=== PATIENT | male | born 1980 | race Two or more races ===

== ENCOUNTER 2019-03-27 18:04 | Inpatient (IN) | payer MEDICAID ==
[~2019-03-27] VITALS: Ht 154.9 cm; Wt 97.5 kg
--- NOTE | 2019-03-27 18:32 | NUR ---
C/O ABDOMINAL PAIN STARTED YESTERDAY, -VOMITING/DIARRHEA. PATIENT A/OX4, BREATHING EVEN AND UNLABORED, NO SOB NOTED, NEEDS ATTENDED, ATTACHED TO THE MONITOR.
[2019-03-27] MEDS ORDERED: MORPHINE SULFATE INJ 2 MG/ML DISP.SYRIN ONE (18:58)
[2019-03-27] MEDS ORDERED: ONDANSETRON HCL/PF 4 MG/2 ML VIAL ONE (18:58)
[2019-03-27] MEDS ORDERED: IV NS 0.9% 1,000 ML BAG IV ONE (19:00)
[2019-03-27] MEDS ORDERED: MORPHINE SULFATE INJ 2 MG/ML DISP.SYRIN IV ONE (19:00)
[2019-03-27] MEDS ORDERED: ONDANSETRON HCL/PF 4 MG/2 ML VIAL IVP ONE (19:00)
[2019-03-27 19:20] LABS: BASOPHILS # (AUTO) 0.1 /CMM (0.0-0.2); BASOPHILS % (AUTO) 0.5 % (0.0-2.0); EOSINOPHILS % (AUTO) 1.6 % (0.0-6.0); HEMATOCRIT 48 % (39-51); HEMOGLOBIN 16.4 g/dL (13.5-17.5); LYMPHOCYTES # (AUTO) 1.2 /CMM (0.8-4.8); MEAN CORPUSCULAR HGB CONC 34 g/dl (31.0-36.0); MEAN CORPUSCULAR VOLUME 92 fL (80-96); MONOCYTES % (AUTO) 6.6 % (2.0-12.0); NEUTROPHILS # (AUTO) 12.2 /CMM (1.8-8.9); NEUTROPHILS % (AUTO) 83.3 % (43.0-81.0); PLATELET COUNT (AUTO) 137 /CMM (150-450); RED BLOOD CELL COUNT(AUTO) 5.26 MIL/uL (4.5-6.0); WHITE BLOOD COUNT (AUTO) 14.7 K/uL (4.3-11.0)
[2019-03-27] MEDS ORDERED: PIPERACILLIN /TAZOBACTAM 3.375 G VIAL IV ONE (19:49)
[2019-03-27] MEDS ORDERED: PIPERACILLIN /TAZOBACTAM 3.375 G in IV D5W 50 ML IV ONE (20:00)
[2019-03-27 20:16] LABS: CALCIUM, SERUM 9.1 mg/dL (8.5-10.1); CREATININE 1.1 mg/dL (0.6-1.3); POTASSIUM 3.9 mmol/L (3.5-5.1)
[2019-03-27 20:21] LABS: ALBUMIN 4.3 g/dL (3.4-5.0); BILIRUBIN,DIRECT 0.2 mg/dL (0.0-0.2); BILIRUBIN,TOTAL 0.8 mg/dL (0.2-1.0)
--- NOTE | 2019-03-27 20:23 | NUR ---
per pt she is not taking any medication at home
--- NOTE | 2019-03-27 20:31 | NUR ---
seen by the hospitslist at the bed side. report given to Adamaris on third floor for EDDIE
[2019-03-27] MEDS ORDERED: IV D5/0.45 NACL 1,000 ML IV PRN (20:40)
--- NOTE | 2019-03-27 20:48 | NUR ---
pt was transferred to the third floor in stable condition
[2019-03-27 21:00] VITALS: BP 126/70
[2019-03-27] MEDS ORDERED: ONDANSETRON HCL/PF 4 MG/2 ML VIAL IVP PRN (21:00)
[2019-03-27] MEDS ORDERED: MORPHINE SULFATE INJ 2 MG/ML DISP.SYRIN IV PRN (21:00)
--- NOTE | 2019-03-27 21:15 | NUR ---
RN ADMITTING NOTES RECEIVED REPORT FROM MANAGER DATA [employer]. Pt ARRIVED TO THE FLOOR IN STABLE CONDITION. ABLE TO AMBULATE WITH STEADY GAIT. NO S/S OF ACUTE DISTRESS OR SOB NOTED. Pt IS A/OX4, VERBAL, ABLE TO MAKE NEEDS KNOWN, NEPALESE SPEAKING BUT UNDERSTANDS IN[place]ES[place] WELL. IV ACCESS ON LAC #18G. SAFETY MEASURES IN PLACE. WILL MOST LIKELY BE HAVING A LAP APPE SX TOMORROW. BED LOW, LOCKED, HOB ELEVATED, SIDE RAILS UP, CALL LIGHT AND BEDSIDE TABLE WITHIN REACH. WILL CONTINUE TO MONITOR Pt's CONDITION AND SAFETY THROUGHOUT THE NIGHT.
[2019-03-27 22:00] VITALS: BP 126/70
--- NOTE | 2019-03-27 23:05 | NUR ---
RN NOTES Pt SIGNED CONSENT FORM FOR LAPAROSCOPIC APPENDECTOMY WITH POSSIBLE OPEN SCHEDULED FOR 03/28/19; 3RD TO FOLLOW. INFORMED Pt SHE NEEDED TO BE NPO AFTER [place]. Pt UNDERSTOOD. CONSENT PLACED IN CHART WITH CHECK LIST.
[2019-03-28] VITALS (7 sets, daily range): BP systolic 97–136; BP diastolic 61–69
[2019-03-28] MEDS ORDERED: PIPERACILLIN /TAZOBACTAM 3.375 G in IV D5W 50 ML IV SCH ×2
[2019-03-28] MEDS: PIPERACILLIN /TAZOBACTAM 3.375 G in IV D5W 100 ML IV SCH ×2 (01:45→09:04)
--- NOTE | 2019-03-28 06:27 | NUR ---
RN CLOSING NOTES NO SIGNIFICANT CHANGES IN Pt's CONDITION. Pt REMAINS STABLE AT THIS TIME. NO S/S OF ACUTE DISTRESS OR SOB NOTED DURING THE NIGHT. Pt IS RESTING COMFORTABLY IN BED, WITH EVEN AND UNLABORED RESPIRATIONS. ALL NEEDS MET AND ATTENDED TO. Pt HAS BEEN NPO SINCE [place]. LAP APPE SCHEDULED TODAY IN THE AM. CONSENT SIGNED AND PLACED IN CHART. SAFETY MEASURES IN PLACE. WILL ENDORSE TO DAYSHIFT RN FOR Pt's EDDIE.
[2019-03-28 07:01] LABS: BASOPHILS % (AUTO) 0.2 % (0.0-2.0); EOSINOPHILS % (AUTO) 5.1 % (0.0-6.0); HEMATOCRIT 44 % (39-51); HEMOGLOBIN 15.1 g/dL (13.5-17.5); LYMPHOCYTES # (AUTO) 1.8 /CMM (0.8-4.8); LYMPHOCYTES % (AUTO) 15.7 % (20.0-44.0); MEAN CORPUSCULAR HGB CONC 34 g/dl (31.0-36.0); MEAN CORPUSCULAR VOLUME 90 fL (80-96); MONOCYTES # (AUTO) 0.9 /CMM (0.1-1.30); MONOCYTES % (AUTO) 7.7 % (2.0-12.0); NEUTROPHILS # (AUTO) 8.2 /CMM (1.8-8.9); NEUTROPHILS % (AUTO) 71.3 % (43.0-81.0); PLATELET COUNT (AUTO) 118 /CMM (150-450); RED BLOOD CELL COUNT(AUTO) 4.89 MIL/uL (4.5-6.0); WHITE BLOOD COUNT (AUTO) 11.5 K/uL (4.3-11.0)
[2019-03-28 07:09] LABS: ALBUMIN 3.5 g/dL (3.4-5.0); BILIRUBIN,TOTAL 1.1 mg/dL (0.2-1.0); CALCIUM, SERUM 8.1 mg/dL (8.5-10.1); MAGNESIUM 1.7 mg/dL (1.8-2.4); PHOSPHORUS 2.9 mg/dL (2.5-4.9); POTASSIUM 3.3 mmol/L (3.5-5.1); TOTAL PROTEIN, SERUM 6.9 g/dL (6.4-8.2)
[2019-03-28 07:13] LABS: THYROID STIMULATING HORMONE 0.467 uIU/mL (0.358-3.74)
--- NOTE | 2019-03-28 07:28 | NUR ---
RN OPENING NOTE PT WAS RECEIVED IN BED AT LOWEST AND LOCKED POSITION WITH SIDE RAILS UP X2, A/O X4 BREATHING EVN Addendum: 03/28/19 at 0731 by NASIR LUNA RN RN OPENING NOTE PT WAS RECEIVED IN BED AT LOWEST AND LOCKED POSITION WITH SIDE RAILS UP X2, A/O X4 BREATHING EVEN AND UNLABORED ON RA WITH NO S/S OF ANY DISTRESS OR PAIN AT THIS TIME, IV IS PATENT AND INTACT, NPO DUE TO PLAN FOR SURGERY LAP.APPY, SAFETY PRECAUTIONS IN PLACE, CALL LIGHT IN REACH, WILL MONITOR ACCORDINGLY
--- NOTE | 2019-03-28 09:35 | NUR ---
RN NOTE PT TAKEN DOWN TO OR FOR LAP. APPY AT THIS TIME
[2019-03-28] MEDS ORDERED: SCOPOLAMINE HBR 1 EA PATCH.TD72 TD ONE (09:56)
[2019-03-28] MEDS ORDERED: MIDAZOLAM HCL 2 MG/2ML VIAL ONE (09:57)
[2019-03-28] MEDS ORDERED: ROCURONIUM BROMIDE 50 MG/5 ML ONE (09:57)
[2019-03-28] MEDS ORDERED: BUPIVACAINE MPF 0.5% W/EPI INJ 30 ML VIAL ONE (10:26)
[2019-03-28] MEDS: Magnesium 1GM/D5W 100ML PREMIX 100 ML IV SCH ×2 (10:38→13:09)
[2019-03-28] MEDS: POTASSIUM CL. PREMIX PERIPHER. 50 ML IV SCH ×2 (10:38→11:47)
[2019-03-28] MEDS ORDERED: KETOROLAC TROMETHAMINE INJ 30 MG/ML VIAL ONE (11:46)
[2019-03-28] MEDS ORDERED: HYDROMORPHONE 1 MG/1 ML DISP.SYRIN ONE (11:56)
[2019-03-28] MEDS ORDERED: ONDANSETRON HCL/PF 4 MG/2 ML VIAL IVP PRN (12:30)
[2019-03-28] MEDS ORDERED: MORPHINE SULFATE INJ 2 MG/ML DISP.SYRIN IV PRN (12:30)
[2019-03-28] MEDS ORDERED: HYDROCODONE/APAP 5/325MG 1 EACH TABLET PO PRN (12:30)
[2019-03-28] MEDS ORDERED: IV D5/0.45 NACL W/20 MEQ KCL 1L IV PRN ×2 (12:30)
--- NOTE | 2019-03-28 12:45 | NUR ---
MS RN NOTES PATIENT ARRIVED 1245 BACK TO UNIT. PATIENT WAS AWAKE AND IN STABLE CONDITION. DENIES ANY PAIN. WILL CONTINUE TO MONITOR.
[2019-03-28] MEDS ORDERED: AMOX-430 PO (15:02)
--- NOTE | 2019-03-28 18:34 | NUR ---
MS RN CLOSING NOTES PATIENT IN BED AWAKE ORIENTED X 4. BREATHING IS EVEN AND UNLABORED. DENIES SOB, ACUTE DISTRESS. IV SITE ON R HAND #22G AND L HAND #18G BOTH ARE PATENT, CLEAN, DRY AND INTACT. NO SIGNS OF INFILTRATION, NO REDNESS. PATIENT IS AMBULATORY. ALL PATIENT NEEDS ARE MET AND ATTENDED TO. SAFETY MEASURES ARE IN PLACE. BED KEPT IN LOWEST POSITION, LOCKED, 2 SIDE RAILS UP. KEPT CALL LIGHT WITHIN REACH. WILL CONTINUE TO MONITOR.
--- NOTE | 2019-03-28 19:00 | NUR ---
IN BED ADB NOTED WITH THREE BANAIDES CLEAN AND DRY SHE DENIES PAIN BS + SHE STAES SHE IS PASSING FLATUS. DENIES PAIN
[2019-03-29 06:18] LABS: BASOPHILS % (AUTO) 0.2 % (0.0-2.0); EOSINOPHILS % (AUTO) 1.8 % (0.0-6.0); HEMATOCRIT 43 % (39-51); HEMOGLOBIN 15.1 g/dL (13.5-17.5); LYMPHOCYTES # (AUTO) 1.7 /CMM (0.8-4.8); LYMPHOCYTES % (AUTO) 14.8 % (20.0-44.0); MEAN CORPUSCULAR HGB CONC 35 g/dl (31.0-36.0); MEAN CORPUSCULAR VOLUME 90 fL (80-96); MONOCYTES # (AUTO) 0.6 /CMM (0.1-1.30); MONOCYTES % (AUTO) 5.3 % (2.0-12.0); NEUTROPHILS % (AUTO) 77.9 % (43.0-81.0); PLATELET COUNT (AUTO) 132 /CMM (150-450); RED BLOOD CELL COUNT(AUTO) 4.76 MIL/uL (4.5-6.0); WHITE BLOOD COUNT (AUTO) 11.5 K/uL (4.3-11.0)
[2019-03-29 06:42] LABS: CALCIUM, SERUM 8.5 mg/dL (8.5-10.1); CREATININE 0.8 mg/dL (0.6-1.3); MAGNESIUM 2.2 mg/dL (1.8-2.4); POTASSIUM 3.8 mmol/L (3.5-5.1)
--- NOTE | 2019-03-29 07:34 | NUR ---
MS RN OPENING NOTES RECEIVED PATIENT IN BED RESTING COMFORTABLY IN MODERATE HIGH BACK REST. A/O X 4. NO SIGNS OF DISTRESS NOTED AT THIS TIME. IV ACCESS ON LAC #18 AND RIGHT HAND #20, SL. PATENT AND INTACT. SAFETY MEASURES IN PLACE, BED IN LOW LOCKED POSITION WITH SIDE RAILS UPX2. CALL LIGHT WITHIN REACH. WILL CONTINUE TO MONITOR.
[2019-03-29 08:00] VITALS: BP 121/74
--- NOTE | 2019-03-29 18:36 | NUR ---
RN DISCHARGED NOTES PATIENT DISCHARGED IN STABLE CONDITION. A/O X4. ABLE TO MAKE NEEDS KNOWN. V/S TAKEN, STABLE AND RECORDED. PATIENT'S IV ACCESS REMOVED AND APPLIED PRESSURE DRESSINGS. SKIN IS INTACT. NAME ARM BAND REMOVED. ALL BELONGINGS CHECKED AND SIGNED. HEALTH TEACHINGS/DISCHARGED INSTRUCTIONS GIVEN AND VERBALIZED UNDERSTANDING. PATIENT LEFT UNIT AMBULATORY WITH NO SIGNS OF DISTRESS. PATIENT LEFT ACCOMPANIED BY A FRIEND. CHARGE NURSE AWARE OF DISCHARGED.
== END 2019-03-29 18:40 | disposition home or self-care (01) | DRG 233 ==
LOC: ER 18:09 → MED 20:34
PROVIDERS: ADMIT Nurse Practitioner Acute Care; ATTEND Nurse Practitioner Acute Care
PROC: 0DTJ4ZZ Resection of Appendix, Percutaneous Endoscopic Approach (ICD-10-PCS; principal; 2019-03-28)
DX: K35.30 Acute appendicitis with localized peritonitis, without perforation or gangrene (principal); D69.6 Thrombocytopenia, unspecified; E83.42 Hypomagnesemia; Z68.41 Body mass index [BMI] 40.0-44.9, adult; E66.9 Obesity, unspecified; Z68.33 Body mass index [BMI] 33.0-33.9, adult; K40.90 Unilateral inguinal hernia, without obstruction or gangrene, not specified as recurrent; R73.9 Hyperglycemia, unspecified; E87.6 Hypokalemia; F64.9 Gender identity disorder, unspecified
CPT/HCPCS: 36415; 71045-TC; 80048-TC; 80053-TC; 80061-TC; 80076-TC; 83690-TC; 83735-TC; 84100-TC; 84443-TC; 85025-TC; 87081-TC; 88304-TC; G0378; J1170; J1885; J2250; J2270; J2405; J2543; J3475; J3480; J3490; J7030; J7050; J7060

== ENCOUNTER → 2019-04-03 | Emergency (ER) | payer MEDICAID ==
[~2019-04-03] VITALS: Ht 177.8 cm; Wt 79.4 kg
[~2019-04-03] MED LIST: AMOX-430 PO
[2019-04-03 12:34] VITALS: BP 136/76
--- NOTE | 2019-04-03 12:42 | NUR ---
SHOBHA MEYERS AT BEDSIDE
--- NOTE | 2019-04-03 12:50 | NUR ---
Patient discharged to home in stable condition. Written and verbal after care instructions given. Patient verbalizes understanding of instruction.
== END | disposition home or self-care (01) ==
LOC: ER 12:26
DX: Z48.02 Encounter for removal of sutures (principal); Z60.2 Problems related to living alone